=== PATIENT | male | born 1945 | race Caucasian/White ===

== ENCOUNTER 2020-09-17 15:24 | Inpatient (IN) | payer MEDICARE, MEDICAID ==
[~2020-09-17] VITALS: Ht 165.1 cm; Wt 74.8 kg
[2020-09-17 16:47] LABS: BASOPHILS % 0.8 % (0.0-2.0); EOSINOPHILS % 2.7 % (0.0-5.0); HEMOGLOBIN. 13.9 g/dL (14.0-18.0); LYMPHOCYTES % 25.7 % (20.0-50.0); MEAN CORPUSCULAR HEMOGLOBIN 31.6 pg (28.0-32.0); MEAN CORPUSCULAR VOLUME 91.3 fL (80.0-94.0); MEAN PLATELET VOLUME 8.6 fl (7.4-10.4); MONOCYTES % 9.4 % (2.0-8.0); NEUTROPHILS % 61.4 % (40.0-76.0); PLATELET 240 x1000/uL (130-400); RED BLOOD CELL COUNT 4.38 mill/uL (4.7-6.1); RED CELL DISTRIBUTION WIDTH 14.4 % (11.6-14.6)
[2020-09-17 16:54] LABS: CHLORIDE 104 mEq/L (98-107)
[2020-09-17] MEDS ORDERED: NITROGLYCERIN 0.1MG/HR PATCH TOP STA (18:42)
[2020-09-17] MEDS ORDERED: CEFTRIAXONE 1 G PREMIX 50 ML IV NR (19:00)
[2020-09-17] MEDS ORDERED: ACETAMINOPHEN 325MG TABLET PO PRN (19:00)
[2020-09-17] MEDS ORDERED: DIPHENHYDRAMINE 50MG/ML VIAL IV PRN (19:00)
[2020-09-17] MEDS ORDERED: AZITHROMYCIN 500 MG in DEXT 5% WATER 250 ML IV SCH (19:00)
[2020-09-17] MEDS ORDERED: ONDANSETRON HCL 4MG/2ML INJ IV PRN (19:00)
[2020-09-17] MEDS: CLONIDINE 0.1MG TABLET PO PRN (19:19)
[2020-09-17] MEDS: AZITHROMYCIN 500MG in DEXTROSE 5% WATER 250ML IV SCH (20:03)
[2020-09-17] MEDS: ENOXAPARIN 40MG/0.4ML SYR SUBCUT SCH (21:26)
[2020-09-18] MEDS ORDERED: HYDR-3735 MT (08:29)
[2020-09-18] MEDS ORDERED: CYAN-50 MT (08:29)
[2020-09-18] MEDS ORDERED: ACET-2708 MT (08:29)
[2020-09-18] MEDS ORDERED: LOSA50TA41 MT (08:29)
[2020-09-18] MEDS ORDERED: FURO40TA5 MT (08:29)
[2020-09-18] MEDS ORDERED: CHOL500010 PO (08:29)
[2020-09-18] MEDS ORDERED: TRAZ-251 MT (08:29)
[2020-09-18] MEDS ORDERED: METO-396 MT (08:29)
[2020-09-18] MEDS ORDERED: DEXAMETHASONE 10 MG/ML VIAL IV NR (09:00)
[2020-09-18 09:22] VITALS: BP 151/86
[2020-09-18 10:00] VITALS: BP 141/86
[2020-09-18] MEDS: CEFTRIAXONE 1,000 MG in DEXTROSE 5% WATER 50 ML IV SCH (10:30)
[2020-09-18 11:11] LABS: CHLORIDE 101 mEq/L (98-107)
[2020-09-18 11:20] LABS: LDL CHOLESTEROL 84 mg/dL (5-100)
[2020-09-18 11:21] LABS: HDL CHOLESTEROL 44 mg/dL (40-59)
[2020-09-18 12:00] VITALS: BP 158/86
[2020-09-18 13:59] LABS: BASOPHILS % 0.9 % (0.0-2.0); EOSINOPHILS % 2.8 % (0.0-5.0); HEMATOCRIT. 41.6 % (42.0-52.0); HEMOGLOBIN. 14.2 g/dL (14.0-18.0); LYMPHOCYTES % 21.9 % (20.0-50.0); MEAN CORPUSCULAR HEMOGLOBIN 32.1 pg (28.0-32.0); MEAN CORPUSCULAR VOLUME 94.1 fL (80.0-94.0); MEAN PLATELET VOLUME 9.6 fl (7.4-10.4); NEUTROPHILS % 68.4 % (40.0-76.0); PLATELET 255 x1000/uL (130-400); RED BLOOD CELL COUNT 4.42 mill/uL (4.7-6.1); RED CELL DISTRIBUTION WIDTH 14.5 % (11.6-14.6)
[2020-09-18] MEDS ORDERED: PNEUMOCOCCAL 23-VAL P-SAC VAC 0.5 ML IM ONE (14:00)
[2020-09-18] MEDS ORDERED: INFLUENZA VACCINE 05/PF 0.5 ML VIAL IM ONE (14:00)
[2020-09-18] MEDS: CLONIDINE 0.1MG TABLET PO PRN (15:36)
[2020-09-18 16:00] VITALS: BP 166/96
[2020-09-18 20:00] VITALS: BP 149/89
[2020-09-18] MEDS ORDERED: CEFTRIAXONE 1 G PREMIX 50 ML IV SCH (20:00)
[2020-09-18] MEDS: ENOXAPARIN 40MG/0.4ML SYR SUBCUT SCH (20:23)
[2020-09-18] MEDS: AZITHROMYCIN 500MG in DEXTROSE 5% WATER 250ML IV SCH (20:23)
[2020-09-19] VITALS: BP 122/65
[2020-09-19 04:00] VITALS: BP 128/68
[2020-09-19 08:00] VITALS: BP 155/86
[2020-09-19] MEDS: CEFTRIAXONE 1,000 MG in DEXTROSE 5% WATER 50 ML IV SCH (08:28)
[2020-09-19] MEDS: CLONIDINE 0.1MG TABLET PO PRN (11:43)
[2020-09-19 12:00] VITALS: BP 165/98
[2020-09-19 16:00] VITALS: BP 149/91
[2020-09-19 19:47] VITALS: BP 148/93
[2020-09-19] MEDS: AZITHROMYCIN 500MG in DEXTROSE 5% WATER 250ML IV SCH (20:29)
[2020-09-19] MEDS: ENOXAPARIN 40MG/0.4ML SYR SUBCUT SCH (20:30)
[2020-09-20 00:05] VITALS: BP 135/66
[2020-09-20 04:00] VITALS: BP 130/60
[2020-09-20 06:51] LABS: BASOPHILS % 1.4 % (0.0-2.0); EOSINOPHILS % 5.1 % (0.0-5.0); HEMATOCRIT. 39.2 % (42.0-52.0); HEMOGLOBIN. 13.2 g/dL (14.0-18.0); MEAN CORPUSCULAR HEMOGLOBIN 31.2 pg (28.0-32.0); MEAN CORPUSCULAR VOLUME 92.6 fL (80.0-94.0); MEAN PLATELET VOLUME 8.7 fl (7.4-10.4); MONOCYTES % 9.2 % (2.0-8.0); NEUTROPHILS % 55.3 % (40.0-76.0); PLATELET 226 x1000/uL (130-400); RED BLOOD CELL COUNT 4.23 mill/uL (4.7-6.1); RED CELL DISTRIBUTION WIDTH 14.5 % (11.6-14.6)
[2020-09-20 07:24] LABS: CHLORIDE 104 mEq/L (98-107)
[2020-09-20 08:00] VITALS: BP 160/89
[2020-09-20] MEDS: CEFTRIAXONE 1,000 MG in DEXTROSE 5% WATER 50 ML IV SCH (10:17)
[2020-09-20 12:00] VITALS: BP 151/96
[2020-09-20] MEDS ORDERED: LORAZEPAM 0.5MG TABLET PO PRN (12:45)
[2020-09-20] MEDS ORDERED: LORA-249 MT (15:06)
[2020-09-20 16:00] VITALS: BP 168/97
[2020-09-20] MEDS: CLONIDINE 0.1MG TABLET PO PRN (16:00)
[2020-09-20 16:47] VITALS: BP_SYST 138; BP_SYST 168; BP_DIAS 89; BP_DIAS 97
[2020-09-20] MEDS ORDERED: AZITHROMYCIN 250 MG TABLET PO SCH (20:00)
== END 2020-09-20 18:45 | disposition home health service (06) | DRG 871 ==
LOC: ER 15:24 → MICUSO 18:45 → 7WST 09-18 07:14 → 6WST 09-18 22:21 → 7WST 09-19 10:16
PROVIDERS: ADMIT Internal Medicine; ATTEND Internal Medicine
DX: A41.9 Sepsis, unspecified organism (principal); U07.1 COVID-19; J18.9 Pneumonia, unspecified organism; J96.01 Acute respiratory failure with hypoxia; I11.9 Hypertensive heart disease without heart failure; F41.1 Generalized anxiety disorder; Z79.899 Other long term (current) drug therapy
CPT/HCPCS: 36415; 71045; 80048; 80053; 80061; 82728; 83605; 83615; 83880; 84145; 84443; 84484; 85025; 85379; 87426; 90686; 90732; 93005; 99291; J0456; J0696; J1100; J1200; J1650; J7060; U0003